=== PATIENT | female | born 1995 | race Caucasian/White ===

== ENCOUNTER 2016-08-10 16:09 | Emergency (ER) | payer MEDICAID, OTHER ==
--- NOTE | 2016-08-10 16:37 | C.PDOC ---
History Of Present Illness 21F c/o gradual onset intermittent headache for 1 week. she reports intermittent headaches since she was hit in the head with a ball at age 9. these headaches are rare, last was a year ago, but this feels worse than before. has tried ibuprofen without relief. no exac or reliev fx. Time Seen by Provider: 08/10/16 16:26 Past Medical History Vital Signs: Last Vital Signs Temp 98.2 F 08/10/16 16:25 Pulse 78 08/10/16 16:25 Resp 20 08/10/16 16:25 BP 119/78 08/10/16 16:25 Pulse Ox 95 08/10/16 16:25 Family History: States: Other Other Family History: nc - Social History Hx Tobacco Use: No Hx Alcohol Use: No Hx Substance Use: No - Immunization History Hx Tetanus Toxoid Vaccination: No Hx Influenza Vaccination: No Hx Pneumococcal Vaccination: No Review Of Systems Constitutional: Negative for: Fever, Chills, Weakness, Malaise Eyes: Negative for: Vision Change Cardiovascular: Negative for: Chest Pain Respiratory: Negative for: Cough, Shortness of Breath Gastrointestinal: Negative for: Nausea, Vomiting, Abdominal Pain Musculoskeletal: Negative for: Neck Pain Neurological: Positive for: Headache, Dizziness. Negative for: Weakness, Numbness, Confusion, Seizures, Altered Mental Status Physical Exam - Physical Exam Appears: Well, Non-toxic, No Acute Distress Skin: Warm, Dry Head: Atraumatic Eye(s): bilateral: PERRL, EOMI Oral Mucosa: Moist Lips: No Swelling Neck: Normal ROM, Supple Cardiovascular: Rhythm Regular Respiratory: No Decreased Breath Sounds, No Accessory Muscle Use Neurological/Psych: Oriented x3, Normal Cranial Nerves, No Cerebellar Signs, Normal Motor, Normal Sensation, Other (no focal deficits) Gait: Steady ED Course And Treatment - CT Scan/US Head CT Other Rad Studies (CT/US): Read By Radiologist, Radiology Report Reviewed CT/US Interpretation: PROCEDURE: CT HEAD WITHOUT CONTRAST. HISTORY: headache. COMPARISON: None available. TECHNIQUE: Axial computed tomography images were obtained through the head/brain without intravenous contrast. Radiation dose: Total exam DLP = 800.08 mGy-cm. This CT exam was performed using one or more of the following dose reduction techniques: Automated exposure control, adjustment of the mA and/or kV according to patient size, and/ or use of iterative reconstruction technique. FINDINGS: HEMORRHAGE: No acute parenchymal, subarachnoid or extra-axial hemorrhage. BRAIN: No evidence of large acute infarct. No evidence of significant chronic ischemic changes. No obvious parenchymal nor extra-axial mass or collection. No mass effect or edema. [place]. VENTRICLES: Unremarkable. No hydrocephalus. CALVARIUM: No acute calvarial fracture seen. PARANASAL SINUSES: Mild mucosal thickening ethmoid air complex with minimal mucosal thickening left chamber sphenoid sinus. MASTOID AIR CELLS: Unremarkable as visualized. No inflammatory changes. OTHER FINDINGS: None. IMPRESSION: No acute intracranial hemorrhage. Medical Decision Making Medical Decision Makin:48pm the pt is sitting up in a chair, appears well, no distress. reports feeling better. disc CT results and she is comfortable with dc. follow up and return precautions advised. Disposition - Disposition Disposition: HOME/ ROUTINE Disposition Time: 17:48 Condition: IMPROVED Prescriptions: Naproxen [Naprosyn] 500 mg PO Q12H PRN #10 tablet PRN Reason: Pain, Moderate (4-7) - Clinical Impression Clinical Impression: Headache
--- NOTE | 2016-08-10 17:45 | CT ---
PROCEDURE: CT HEAD WITHOUT CONTRAST. HISTORY: headache COMPARISON: None available. TECHNIQUE: Axial computed tomography images were obtained through the head/brain without intravenous contrast. Radiation dose: Total exam DLP = 800.08 mGy-cm. This CT exam was performed using one or more of the following dose reduction techniques: Automated exposure control, adjustment of the mA and/or kV according to patient size, and/or use of iterative reconstruction technique. FINDINGS: HEMORRHAGE: No acute parenchymal, subarachnoid or extra-axial hemorrhage. BRAIN: No evidence of large acute infarct. No evidence of significant chronic ischemic changes. No obvious parenchymal nor extra-axial mass or collection. No mass effect or edema. [place] VENTRICLES: Unremarkable. No hydrocephalus. CALVARIUM: No acute calvarial fracture seen. PARANASAL SINUSES: Mild mucosal thickening ethmoid air complex with minimal mucosal thickening left chamber sphenoid sinus MASTOID AIR CELLS: Unremarkable as visualized. No inflammatory changes. OTHER FINDINGS: None. IMPRESSION: No acute intracranial hemorrhage.
[2016-08-10 18:00] VITALS: PULSE 63; RESP 18; TEMP 98; O2SAT 100
[2016-08-10 18:07] VITALS: BP 100/62
== END 2016-08-10 18:07 | disposition home or self-care (01) ==
LOC: C.ER 16:09
DX: R51 Headache (principal)
CPT/HCPCS: 70450; 99285; Q0164